=== PATIENT | male | born 1935 | race Two or more races ===

== ENCOUNTER 2018-12-20 04:38 | Emergency (ER) | payer OTHER ==
[~2018-12-20] VITALS: Ht 170.2 cm; Wt 63.5 kg
[2018-12-20 04:58] VITALS: Ht 170.2 cm; Wt 63.5 kg
[2018-12-20 05:33] LABS: CALCIUM 9.6 mg/dL (8.5-10.1); CARBON DIOXIDE 24.9 mmol/L (21-32); CHLORIDE SERUM 97 mmol/L (98-107); CREATININE SERUM 1.5 mg/dL (0.7-1.3); GLUCOSE SERUM 188 mg/dL (74-106); POTASSIUM SERUM 4.1 mmol/L (3.5-5.1); SODIUM SERUM 136 mmol/L (136-145)
[2018-12-20 05:35] LABS: PLATELET COUNT 390 x10^3mcL (130-400)
[2018-12-20 05:38] LABS: ALKALINE PHOSPHATASE 90 U/L (46-116); ALT/SGPT 0 U/L (16-63); AST/SGOT 9 U/L (15-37); BILIRUBIN TOTAL 0.31 mg/dL (0.20-1.00); LIPASE 289 IU/L (73-393); TOTAL PROTEIN, SERUM 7.4 g/dL (6.4-8.2)
[2018-12-20 05:39] LABS: RED CELL DISTRIBUTION WIDTH 15.6 % (11.5-14.5)
[2018-12-20 05:41] LABS: ALBUMIN 2.9 g/dL (3.4-5.0)
[2018-12-20 06:22] LABS: UA SPECIFIC GRAVITY <=1.005 (1.005-1.035); microscopic required? YES; urine erythrocyte TRACE (NEGATIVE)
[2018-12-20 07:17] VITALS: BP 143/72
== END 2018-12-20 07:35 | disposition home or self-care (01) ==
LOC: ED 04:38
PROVIDERS: Emergency Medicine
DX: I10 Essential (primary) hypertension (principal); N39.0 Urinary tract infection, site not specified; E11.22 Type 2 diabetes mellitus with diabetic chronic kidney disease; I12.9 Hypertensive chronic kidney disease with stage 1 through stage 4 chronic kidney disease, or unspecified chronic kidney disease; N18.9 Chronic kidney disease, unspecified; G20 Parkinson's disease; Z98.890 Other specified postprocedural states; Z85.51 Personal history of malignant neoplasm of bladder
CPT/HCPCS: 36415